=== PATIENT | male | born 1955 | race Caucasian/White ===

== ENCOUNTER 2021-06-22 17:20 | Inpatient (IN) | payer OTHER, MEDICARE ==
[~2021-06-22] VITALS: Ht 175.3 cm; Wt 83.1 kg
[2021-06-22 17:26] VITALS: BP_SYST 214
[2021-06-22] MEDS ORDERED: ENALAPRILAT DIHYDRATE 1.25 MG/ML VIAL IVP ONE (17:45)
[2021-06-22] MEDS ORDERED: NITROGLYCERIN 1 INCH (GM) OINT. TP ONE (17:45)
[2021-06-22] MEDS ORDERED: MORPHINE 4 MG INJ. 4 MG/ML VIAL IVP ONE (17:45)
[2021-06-22] MEDS ORDERED: ENOXAPARIN SODIUM 80 MG/0.8 ML SYRINGE SUBCUT ONE (17:45)
[2021-06-22 18:06] LABS: HEMOGLOBIN 15.1 g/dL (14.0-18.0); LYMPHOCYTES % (AUTO) 23.3 % (20.5-51.5); MEAN CORPUSCULAR VOLUME 93 fL (79.0-98.0); RED CELL DISTRIBUTION WIDTH 13.2 % (9.0-15.0)
[2021-06-22 18:13] LABS: BASOPHILS % (AUTO) 0.4 % (0.0-2.0); EOSINOPHILS # (AUTO) 0.2 K/uL (0.0-0.4); EOSINOPHILS % (AUTO) 2.2 % (0.0-4.0); HEMATOCRIT 44.6 % (36-54); LYMPHOCYTES # (AUTO) 1.7 K/uL (1.0-5.5); MEAN CORPUSCULAR HEMOGLOBIN 31 pg (27-31); MEAN CORPUSCULAR HGB CONC 34 % (32-36); MONOCYTES # (AUTO) 0.7 K/uL (0.0-1.0); MONOCYTES % (AUTO) 8.7 % (1.7-9.3); NEUTROPHILS # (AUTO) 4.9 K/uL (1.8-7.7); NEUTROPHILS % (AUTO) 65.4 % (40.0-70.0); PLATELET COUNT (AUTO) 200 K/uL (130-430); RED BLOOD CELL COUNT(AUTO) 4.82 MIL/uL (4.2-6.2); WHITE BLOOD COUNT (AUTO) 7.5 K/uL (4.8-10.8)
[2021-06-22 18:25] LABS: ANION GAP 7 (5-15); CALCIUM 8.9 mg/dL (8.4-11.0); CHLORIDE 98 mmol/L (98-107); CREATININE 1.04 mg/dL (0.55-1.30); GLUCOSE 313 mg/dL (70-99); POTASSIUM 3.7 mmol/L (3.5-5.1); SODIUM SERUM 134 mmol/L (136-145); UREA NITROGEN, BLOOD 12 mg/dL (8-21)
[2021-06-22 18:29] LABS: GFR AFRICAN AMERICAN 92 mL/min (>90)
[2021-06-22 18:34] LABS: ALANINE AMINOTRANSFERASE 43 U/L (12-78); ALBUMIN 3.6 g/dL (3.4-4.8); ASPARTATE AMINOTRANSFERASE 33 U/L (10-37); TOTAL BILIRUBIN 0.4 mg/dL (0.0-1.0)
[2021-06-22] MEDS ORDERED: METOPROLOL TARTRATE 5 MG/5 ML AMPUL IVP ONE (19:00)
[2021-06-22] MEDS ORDERED: DULO60CA42 PO (20:00)
[2021-06-22] MEDS ORDERED: NITROGLYCERIN 0.4 MG TAB.SUBL SL PRN (20:00)
[2021-06-22] MEDS ORDERED: MORP30TA59 PO (20:00)
[2021-06-22] MEDS ORDERED: METO-442 PO (20:00)
[2021-06-22] MEDS ORDERED: METOPROLOL SUCCINATE 25 MG TAB.SR.24H (TOPROL XL) PO SCH (21:00)
[2021-06-22] MEDS: ATORVASTATIN 20 MG TABLET PO SCH (21:00)
[2021-06-22] MEDS ORDERED: ACETAMINOPHEN 325 MG TABLET PO PRN (21:15)
[2021-06-22] MEDS ORDERED: ASPIRIN 81 MG TAB.CHEW PO ONE (21:15)
[2021-06-22] MEDS: METOPROLOL TARTRATE 50 MG TABLET PO SCH (21:32)
[2021-06-22] MEDS: MORPHINE 2 MG/ML INJ. SYRINGE IVP PRN ×2 (21:39→23:53)
[2021-06-22 23:09] VITALS: BP_SYST 124
[2021-06-22] MEDS: DULoxetine HCL 30 MG CAPSULE.DR (CYMBALTA) PO SCH (23:31)
[2021-06-22 23:58] VITALS: BP_SYST 117
[2021-06-23] VITALS (7 sets, daily range): BP systolic 123–185
[2021-06-23] MEDS: HYDROcodone/ACETAMIN 5-325 MG TAB (NORCO/ VICODIN) PO PRN ×2 (01:40→14:00)
[2021-06-23] MEDS: MORPHINE 2 MG/ML INJ. SYRINGE IVP PRN ×2 (05:01→20:24)
[2021-06-23] MEDS: ASPIRIN 81 MG TAB.CHEW PO SCH (08:35)
[2021-06-23] MEDS: DULoxetine HCL 30 MG CAPSULE.DR (CYMBALTA) PO SCH ×2 (08:35→20:22)
[2021-06-23] MEDS: METOPROLOL TARTRATE 50 MG TABLET PO SCH ×2 (08:36→20:22)
[2021-06-23] MEDS ORDERED: CLOPIDOGREL BISULFATE 75 MG TABLET PO ONE (09:30)
[2021-06-23] MEDS: ATORVASTATIN 20 MG TABLET PO SCH (20:22)
[2021-06-24] VITALS (7 sets, daily range): BP systolic 132–166
[2021-06-24] MEDS: HYDROcodone/ACETAMIN 5-325 MG TAB (NORCO/ VICODIN) PO PRN ×3 (01:38→15:22)
[2021-06-24] MEDS: MORPHINE 2 MG/ML INJ. SYRINGE IVP PRN ×3 (05:51→20:06)
[2021-06-24 07:52] LABS: ALBUMIN 2.9 g/dL (3.4-4.8); CALCIUM 7.8 mg/dL (8.4-11.0); CREATININE 0.82 mg/dL (0.55-1.30); POTASSIUM 3.9 mmol/L (3.5-5.1); THYROID STIMULATING HORMONE 1.74 uIu/mL (0.36-3.74); TOTAL BILIRUBIN 0.5 mg/dL (0.0-1.0)
[2021-06-24] MEDS: ASPIRIN 81 MG TAB.CHEW PO SCH (08:45)
[2021-06-24] MEDS: METOPROLOL TARTRATE 50 MG TABLET PO SCH ×2 (08:45→20:04)
[2021-06-24] MEDS: CLOPIDOGREL BISULFATE 75 MG TABLET PO SCH (08:45)
[2021-06-24] MEDS: DULoxetine HCL 30 MG CAPSULE.DR (CYMBALTA) PO SCH ×2 (08:46→20:04)
[2021-06-24] MEDS: LOSARTAN POTASSIUM 50 MG TABLET (COZAAR) PO SCH (13:08)
[2021-06-25] VITALS (8 sets, daily range): BP systolic 125–192
[2021-06-25] MEDS ORDERED: hydrALAZINE HCL 25 MG TABLET PO ONE (00:15)
[2021-06-25] MEDS: MORPHINE 2 MG/ML INJ. SYRINGE IVP PRN ×4 (00:21→20:44)
[2021-06-25 06:45] LABS: ALANINE AMINOTRANSFERASE 35 U/L (12-78); ASPARTATE AMINOTRANSFERASE 25 U/L (10-37); CALCIUM 8.1 mg/dL (8.4-11.0); CHLORIDE 99 mmol/L (98-107); CREATININE 0.77 mg/dL (0.55-1.30); GLUCOSE 209 mg/dL (70-99); POTASSIUM 4.3 mmol/L (3.5-5.1); SODIUM SERUM 134 mmol/L (136-145); TOTAL BILIRUBIN 0.4 mg/dL (0.0-1.0); UREA NITROGEN, BLOOD 18 mg/dL (8-21)
[2021-06-25 07:37] LABS: ANION GAP < 3 (5-15); GFR AFRICAN AMERICAN 130 mL/min (>90)
[2021-06-25] MEDS: LOSARTAN POTASSIUM 50 MG TABLET (COZAAR) PO SCH (08:48)
[2021-06-25] MEDS: METOPROLOL TARTRATE 50 MG TABLET PO SCH ×2 (08:48→20:41)
[2021-06-25] MEDS: DULoxetine HCL 30 MG CAPSULE.DR (CYMBALTA) PO SCH ×2 (08:49→20:40)
[2021-06-25] MEDS: ASPIRIN 81 MG TAB.CHEW PO SCH (08:49)
[2021-06-25] MEDS: CLOPIDOGREL BISULFATE 75 MG TABLET PO SCH (08:49)
[2021-06-25] MEDS ORDERED: hydrALAZINE HCL 25 MG TABLET PO SCH ×2 (09:00→21:00)
[2021-06-25] MEDS: HYDROcodone/ACETAMIN 5-325 MG TAB (NORCO/ VICODIN) PO PRN (11:58)
[2021-06-25] MEDS ORDERED: cloNIDine HCL 0.1 MG TABLET PO ONE (12:30)
[2021-06-25] MEDS ORDERED: hydrALAZINE HCL 20 MG/ML VIAL IVP ONE (16:00)
[2021-06-25] MEDS: hydrALAZINE HCL 25 MG TABLET PO SCH (20:42)
[2021-06-26] VITALS: BP_SYST 144
[2021-06-26 02:37] VITALS: BP_SYST 155
[2021-06-26] MEDS: MORPHINE 2 MG/ML INJ. SYRINGE IVP PRN ×5 (02:39→21:42)
[2021-06-26] MEDS: hydrALAZINE HCL 25 MG TABLET PO SCH ×2 (08:48→21:40)
[2021-06-26] MEDS: DULoxetine HCL 30 MG CAPSULE.DR (CYMBALTA) PO SCH ×2 (08:49→21:39)
[2021-06-26] MEDS: CLOPIDOGREL BISULFATE 75 MG TABLET PO SCH (08:49)
[2021-06-26] MEDS: ASPIRIN 81 MG TAB.CHEW PO SCH (08:50)
[2021-06-26] MEDS: LOSARTAN POTASSIUM 50 MG TABLET (COZAAR) PO SCH (08:50)
[2021-06-26] MEDS: METOPROLOL TARTRATE 50 MG TABLET PO SCH ×2 (08:51→21:40)
[2021-06-26 12:17] VITALS: BP_SYST 152
[2021-06-26 16:27] VITALS: BP_SYST 155
[2021-06-26] MEDS ORDERED: FUROSEMIDE 40 MG/4 ML VIAL IVP ONE (19:45)
[2021-06-26 20:41] VITALS: BP_SYST 155
[2021-06-26] MEDS: ALBUTEROL SULFATE 0.083% 2.5 MG/3 ML VIAL.NEB INH PRN ×2 (20:45→23:43)
[2021-06-26 21:38] VITALS: BP_SYST 138
[2021-06-27 00:48] VITALS: BP_SYST 137
[2021-06-27 01:09] VITALS: BP_SYST 146
[2021-06-27] MEDS: MORPHINE 2 MG/ML INJ. SYRINGE IVP PRN ×2 (01:15→04:19)
[2021-06-27 04:15] VITALS: BP_SYST 149
[2021-06-27 06:22] LABS: BASOPHILS % (AUTO) 0.4 % (0.0-2.0); EOSINOPHILS # (AUTO) 0.2 K/uL (0.0-0.4); EOSINOPHILS % (AUTO) 3.4 % (0.0-4.0); HEMATOCRIT 44.5 % (36-54); HEMOGLOBIN 14.9 g/dL (14.0-18.0); LYMPHOCYTES # (AUTO) 1.6 K/uL (1.0-5.5); LYMPHOCYTES % (AUTO) 29.2 % (20.5-51.5); MEAN CORPUSCULAR HEMOGLOBIN 31 pg (27-31); MEAN CORPUSCULAR HGB CONC 33 % (32-36); MEAN CORPUSCULAR VOLUME 93 fL (79.0-98.0); MONOCYTES # (AUTO) 0.5 K/uL (0.0-1.0); MONOCYTES % (AUTO) 9.9 % (1.7-9.3); NEUTROPHILS # (AUTO) 3.1 K/uL (1.8-7.7); NEUTROPHILS % (AUTO) 57.1 % (40.0-70.0); PLATELET COUNT (AUTO) 204 K/uL (130-430); WHITE BLOOD COUNT (AUTO) 5.5 K/uL (4.8-10.8)
[2021-06-27 06:43] LABS: CALCIUM 8.5 mg/dL (8.4-11.0); CREATININE 1.01 mg/dL (0.55-1.30); POTASSIUM 4.3 mmol/L (3.5-5.1)
[2021-06-27] MEDS: ALBUTEROL SULFATE 0.083% 2.5 MG/3 ML VIAL.NEB INH PRN (07:48)
[2021-06-27 08:30] VITALS: BP_SYST 137
[2021-06-27] MEDS ORDERED: HYDROCHLOROTHIAZIDE 25 MG TABLET (HCTZ) PO SCH (09:00)
[2021-06-27 10:09] VITALS: BP_SYST 137
== END 2021-06-27 10:24 | disposition home or self-care (01) | DRG 313 ==
LOC: SED 17:20 → STU 19:46
PROVIDERS: ADMIT Family Medicine; ATTEND Family Medicine
DX: R07.89 Other chest pain (principal); I16.9 Hypertensive crisis, unspecified; I50.20 Unspecified systolic (congestive) heart failure; I42.9 Cardiomyopathy, unspecified; I11.0 Hypertensive heart disease with heart failure; I25.10 Atherosclerotic heart disease of native coronary artery without angina pectoris; F32.A Depression, unspecified; R77.8 Other specified abnormalities of plasma proteins; Z20.822 Contact with and (suspected) exposure to COVID-19; E78.5 Hyperlipidemia, unspecified; G89.4 Chronic pain syndrome; Z83.3 Family history of diabetes mellitus; Z86.79 Personal history of other diseases of the circulatory system; Z87.891 Personal history of nicotine dependence; Z85.89 Personal history of malignant neoplasm of other organs and systems; I25.2 Old myocardial infarction; Z88.7 Allergy status to serum and vaccine; Z88.8 Allergy status to other drugs, medicaments and biological substances; Z79.899 Other long term (current) drug therapy; Z95.1 Presence of aortocoronary bypass graft
CPT/HCPCS: 36415; 71045; 80048; 80053; 80061; 83036; 83880; 84443; 84484; 85025; 93005; 93306; 94640; 96361; 96372; 96374; 96375; 99285; G0378; G0481; J0360; J1650; J1940; J2270; J3490; J7613